=== PATIENT | female | born 1975 | race Caucasian/White ===

== ENCOUNTER 2017-12-06 03:15 | Emergency (ER) | payer MEDICARE, MEDICAID ==
[~2017-12-06] VITALS: Ht 165.1 cm; Wt 52.2 kg
[2017-12-06 03:20] VITALS: BP 167/99
[2017-12-06] MEDS ORDERED: SEROQUEL200 MG ORAL (03:34)
[2017-12-06] MEDS ORDERED: SEROQUEL100 MG ORAL (03:34)
[2017-12-06] MEDS ORDERED: DOCUSATE SODIU100 MG ORAL (03:35)
[2017-12-06] MEDS ORDERED: VENTOLIN HFA18 GM INH (03:35)
[2017-12-06] MEDS ORDERED: NEPHRO-VITE RX1 EAC1 PO (03:35)
[2017-12-06] MEDS ORDERED: CYMBALTA60 MG ORAL (03:36)
[2017-12-06] MEDS ORDERED: IBUPROFEN600 MG ORAL (03:37)
[2017-12-06] MEDS ORDERED: PERCOCET 5-3251 EACH ORAL (03:37)
[2017-12-06] MEDS ORDERED: TYLENOL650 MG/20. ORAL (03:37)
[2017-12-06] MEDS ORDERED: MILK OF MA400 MG/51 ORAL (03:38)
[2017-12-06] MEDS ORDERED: BISACODYL5 MG ORAL (03:38)
[2017-12-06] MEDS ORDERED: LAMICTAL25 MG ORAL (03:39)
[2017-12-06] MEDS ORDERED: BENZTROPINE ME0.5 MG PO (03:40)
[2017-12-06] MEDS ORDERED: LORazepam 1mg tab ORAL ONE (04:00)
[2017-12-06] MEDS ORDERED: DiphenhydrAMINE 50mg/ml Inj IVP ONE (04:00)
[2017-12-06] MEDS ORDERED: LORazepam Inj 2mg/ml 1ml IV ONE (04:00)
[2017-12-06 04:22] LABS: BASOPHILS % (AUTO) 0.6 % (0.0-2.0); EOSINOPHILS % (AUTO) 0.5 % (0.0-3.0); HEMATOCRIT 39.6 % (37.0-47.0); HEMOGLOBIN 14.7 G/DL (12.0-16.0); LYMPHOCYTES % (AUTO) 20.6 % (20.0-45.0); MEAN CORPUSCULAR VOLUME 92 FL (80-99); MONOCYTES % (AUTO) 7.3 % (1.0-10.0); PLATELET COUNT 362 K/UL (150-450); RED BLOOD COUNT 4.32 M/UL (4.20-5.40); RED CELL DISTRIBUTION WIDTH 10.3 % (11.6-14.8); WHITE BLOOD COUNT 6.4 K/UL (4.8-10.8)
[2017-12-06 04:36] LABS: ANION GAP 18 mmol/L (5-15); BLOOD UREA NITROGEN 23 mg/dL (7-18); CALCIUM 9.9 MG/DL (8.5-10.1); CARBON DIOXIDE 19 MMOL/L (21-32); CHLORIDE 100 MMOL/L (98-107); CREATININE 1.2 MG/DL (0.55-1.30); POTASSIUM 3.5 MMOL/L (3.5-5.1); SODIUM 137 MMOL/L (136-145)
--- NOTE | 2017-12-06 04:40 | Emergency Room Report ---
History of Present Illness General Chief Complaint: General Complaint Source: Patient, Medical Record, EMS Present Illness HPI 42-year-old male, coming from retirement, for panic attack. Patient is stating that she has severe anxiety, was given medicine at the retirement, but states it did not help. Patient states that this is the worst panic attacks his ever had. Feels like she is going to have "a stroke". Denies any drug use. Allergies: Coded Allergies: No Known Allergies (Unverified , 12/06/17) Patient History Past Medical History: see triage record Past Surgical History: none Pertinent Family History: none Reviewed Nursing Documentation: PMH: Agreed, PSxH: Agreed Nursing Documentation-PMH Past Medical History: No History, Except For Hx COPD: Yes History Of Psychiatric Problem: Yes Review of Systems All Other Systems: negative except mentioned in HPI Physical Exam Vital Signs Date Time Temp Pulse Resp B/P (MAP) Pulse Ox O2 Delivery O2 Flow Rate FiO2 12/06/17 03:16 98.1 102 18 167/99 99 Room Air 98.1 Sp02 EP Interpretation: reviewed, normal General Appearance: alert, GCS 15, moderate distress Head: normocephalic, atraumatic Eyes: bilateral eye normal inspection, bilateral eye PERRL, bilateral eye EOMI ENT: normal ENT inspection, normal pharynx, normal voice, moist mucus membranes Neck: normal inspection, full range of motion, supple Respiratory: normal inspection, lungs clear, normal breath sounds, no respiratory distress, no retraction, no wheezing, speaking full sentences, chest symmetrical Cardiovascular #1: normal inspection, regular rate, rhythm, no edema, normal capillary refill Cardiovascular #2: 2+ radial (R), 2+ radial (L) Gastrointestinal: normal inspection, non tender, soft, non-distended, no guarding Musculoskeletal: normal inspection, back normal, normal range of motion, non- tender Neurologic: normal inspection, alert, oriented x3, responsive, motor strength/ tone normal, sensory intact, normal gait, speech normal Psychiatric: depressed affect, anxious Skin: normal inspection, normal color, no rash, warm/dry, well hydrated, normal turgor Medical Decision Making Diagnostic Impression: Primary Impression: Anxiety ER Course 42-year-old female, here for panic attack DDX: Anxiety/panic attack versus intoxication Plan: Obtain labs, ua, ucx, drug screen ER course: Patient has been ambulating to and from the restroom. Was given Ativan and Benadryl. No more calm Disposition: Patient is to be discharged to SNF Please note that this Emergency Department Report was dictated using [employer] commerce developer technology software, occasionally this can lead to erroneous entry secondary to interpretation by the dictation equipment Last Vital Signs Date Time Temp Pulse Resp B/P (MAP) Pulse Ox O2 Delivery O2 Flow Rate FiO2 12/06/17 03:20 98.1 18 167/99 99 Room Air 98.1 12/06/17 03:16 102 Disposition: [facility]FER [facility] Condition: Improved Patient Instructions: Panic Attacks Chanelle Whitley M.D. Dec 06, 2017 04:40
[2017-12-06 04:47] LABS: ALANINE AMINOTRANSFERASE 23 U/L (12-78); ALBUMIN 4.7 G/DL (3.4-5.0); ALBUMIN/GLOBULIN RATIO 1.1 (1.0-2.7); ALKALINE PHOSPHATASE 86 U/L (46-116); ASPARTATE AMINO TRANSFERASE 15 U/L (15-37); BILIRUBIN,TOTAL 1.3 MG/DL (0.2-1.0)
[2017-12-06 04:51] LABS: BILIRUBIN,DIRECT 0.3 MG/DL (0.0-0.3)
[2017-12-06 05:30] VITALS: BP 117/82
[2017-12-06 07:00] VITALS: BP 104/67
[2017-12-06 08:05] VITALS: BP 106/74
== END 2017-12-06 08:05 | disposition short-term general hospital (02) ==
LOC: EDBD 03:15 → EMR 03:43
DX: F41.0 Panic disorder [episodic paroxysmal anxiety] (principal); F41.9 Anxiety disorder, unspecified; J44.9 Chronic obstructive pulmonary disease, unspecified
CPT/HCPCS: 36415; 80053; 82248; 82962; 85025; 96374; 96375; 99284; G0480; J1200; 80329